=== PATIENT | male | born 1965 | race Caucasian/White ===

== ENCOUNTER 2022-01-25 11:01 | Emergency (ER) | payer OTHER ==
[2022-01-25 12:03] LABS: AMPHETAMINES NEGATIVE (NEGATIVE); BARBITURATES NEGATIVE (NEGATIVE); BILIRUBIN NEGATIVE (NEGATIVE); BLOOD NEGATIVE Ery/uL (NEGATIVE); CLARITY CLEAR (CLEAR); COLOR YELLOW (YELLOW); ECSTASY (MDMA) NEGATIVE (NEGATIVE); GLUCOSE (U) NORMAL (NORMAL); LEUKOCYTES NEGATIVE Leu/uL (NEGATIVE); MARIJUANA (THC) NEGATIVE (NEGATIVE); METHADONE NEGATIVE (NEGATIVE); NITRITE NEGATIVE (NEGATIVE); OPIATES NEGATIVE (NEGATIVE); OXYCODONE NEGATIVE (NEGATIVE); PROTEIN NEGATIVE (NEGATIVE); UROBILINOGEN 0.2 mg/dL (0.2-1.0)
[2022-01-25 12:09] LABS: BASOPHIL 1.1 % (0-2); EOSINOPHIL 0.6 % (0-5); HCT 48.4 % (42.0-52.0); HGB 17.1 g/dl (13.2-18.0); LYMPHOCYTE 22.6 % (15-48); MCH 32.9 pg (25.0-31.0); MCHC 35.3 g/dL (32.0-36.0); MCV 93.1 fL (78.0-100.0); MONOCYTE 7.3 % (0-12); MPV 10.2 fL (6.0-9.5); NEUTROPHIL 67.8 % (41-80); NRBC 0; PLT 169 K/uL (150-400); RDW 12.2 % (11.5-14.0); WBC 4.7 K/uL (4.0-10.5)
[2022-01-25 12:16] LABS: BILIRUBIN - TOTAL 0.8 mg/dL (0.2-1.0); BUN/CREAT RATIO (CALC) 14.7 RATIO; CREATININE 0.75 mg/dL (0.67-1.17); GLOBULIN (CALCULATION) 2.8 g/dL; POTASSIUM 3.9 mmol/L (3.5-5.1); TOTAL PROTEIN 6.8 g/dL (6.4-8.2)
== END 2022-01-25 14:20 | disposition home or self-care (01) ==
LOC: FER 11:01
PROVIDERS: Emergency Medicine
DX: R55 Syncope and collapse (principal)
CPT/HCPCS: 36415; 70450; 71045; 80053; 80305; 81003; 84484; 85025; 85379; 93005